=== PATIENT | male | born 1945 | race Caucasian/White ===

== ENCOUNTER → 2017-10-21 | Outpatient (CLI) | payer OTHER, MEDICARE | END | disposition home or self-care (01) | LOC: C.LABPBG 11:22 | PROVIDERS: ATTEND Family Medicine | DX: N40.1 Benign prostatic hyperplasia with lower urinary tract symptoms (principal) ==

== ENCOUNTER 2025-05-30 15:04 | Observation (INO) ==
--- NOTE | 2025-05-30 15:23 | Emergency Department Note ---
Impression & Plan Stroke-like symptoms, Bradycardia ED Provider Note NAME: ROSHAN GUY AGE: 79 SEX: M : 1945 ARRIVES VIA: Ambulance INFORMANT: Patient, ED PROVIDER(S): Andi Schmidt MD CHIEF COMPLAINT: Right arm numbness MEDICAL DECISION MAKING: Patient presents with the above. IV was established and blood work was obtained. Symptoms have resolved. Patient with a normal white count hemoglobin of 2.5 with a normal platelet count. Kidney function is unremarkable with normal electrolytes. CT head and CT angiography of the head and neck are negative. ABCD2 score of 4 given age and blood pressure and duration of symptoms. Moderate risk. Given this degree the patient would benefit from admission. I did speak the on-call hospitalist service Lisa Mays PA-C and Dr. Wright. Subsequently did speak with Dr. Godfrey who agreed with Plavix 75 but did not require Plavix load. Patient already on baby aspirin. Discussion w/ other healthcare providers: Lisa Mays PA-C and Dr. Wright inpatient medicine service Dr. Godfrey neurology Prior /Outside records reviewed: I reviewed part of a visit note from earlier today with Terrie Danielle with cardiology. The patient was seen at that time was noted to have a feeling of fogginess and right arm tingling started about an hour prior to arrival while he was driving. Differential diagnosis: Infection, dehydration, metabolic abnormality, hypo/hyperglycemia, electrolyte imbalance, anemia, UTI, pneumonia, thyroid dysfunction among others were considered. Diagnostics, as interpreted by me: ECG: Sinus bradycardia with sinus arrhythmia first-degree AV block, prolonged PA normal QRS, PVCs noted, normal axis no obvious ST elevations. Cardiac monitoring: An order was placed for continuous cardiac monitoring. The monitor shows a rate of 62 with sinus rhythm. Patient was placed on pulse oximetry Medical decision rules: ABCD2 score Imaging studies: I informally interpreted the patient's CT head does not show obvious ICH, cerebral atrophy noted, with formal report to follow. HPI: Patient presents due to concern for strokelike symptoms. Reportedly felt "off" and had some numbness in his right arm. Patient states that this lasted approximately an hour to an hour and 15 minutes in duration began around 1230 [id number]. Patient states that about a week ago he was seen at [facility] for feeling "off" and his checked his pulse and was noted to be in the 40s they present at that time. He had an unremarkable workup but was noted to have PVCs and thought that the bradycardia detected at home was likely because it was not picking up on the PVCs. Patient states that he was placed on a Holter monitor and was dropping his off at the cardiology office at which point he was seen and was noted to have the arm numbness. He denies any prior history of stroke or mini stroke. His symptoms have resolved. He denies any slurred speech or facial droop. No weakness of extremity. He denies any chest pains or shortness of breath. PAST MEDICAL HISTORY: See Below PAST SURGICAL HISTORY: See Below SOCIAL HISTORY: See Below HOME MEDICATIONS: See Below ALLERGIES: See Below VITALS: See Below PHYSICAL EXAMINATION: GENERAL: NAD, non-toxic. EYE EXAM: Normal conjunctiva. PERRL, no anisocoria and EOM's grossly intact w/o pain. OROPHARYNX: Moist mucus membranes, grossly normal dentition. NECK: Trachea midline, no stridor. LUNGS: Clear to auscultation. Normal chest wall mechanics. HEART: NSR, no MRG. ABDOMEN: Abdomen soft, non-tender, no masses, no rebound or guarding. BACK: No CVA TTP. SKIN: No rashes and no bruising. UPPER EXTREMITIES: Upper extremities are grossly normal. LOWER EXTREMITIES: Grossly normal, no edema. NEURO EXAM: Awake and alert, follows commands, no obvious facial asymmetry, normal speech, moves all 4 extremities. 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 Dizziness has been corrected. 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 Dizziness has been corrected. Hx of arthroscopy of right knee Hx of shoulder surgery left - to remove larry - not orthopedic issue Hx of vasectomy Hx of appendectomy Hx of cholecystectomy Hx of bilateral cataract extraction History of cardiac cath done in [place] - 2008? date (NO STENTS) Family History Brother Diabetes Cardiac disorder Mother Diabetes Cardiac disorder Hypertension Grandmother Breast cancer Other No family history of adverse response to anesthesia Social History Smoking Status: Former smoker Second Hand Exposure: Yes ( A CHILD); Do You Dip or Chew Tobacco: No; Hx Alcohol Use: Yes Alcohol type: beer, wine and hard liquor Hx Substance Use: No Preferred Language: Peruvian Communication Ability: Effective Daycare Assistant Required: No Beliefs That Will Affect Care: None Current Living Situation: Spouse Feels Safe at Home: Yes Assistive Devices: CPAP, Glasses and Hearing Aid - Bilateral Allergies Allergies Allergy/AdvReac Type Severity Reaction Status Date / Time sesame oil Allergy Severe Swelling Verified 05/30/25 17:04 of Lip/Tongue/Throat--ANYTHING "SESAME" codeine Allergy Mild Rash Verified 05/30/25 17:04 Penicillins Allergy Mild Rash Verified 05/30/25 17:04 Home Meds Home Medications Medication Instructions Recorded Confirmed aspirin 81 mg tablet,delayed 81 mg PO QAM 09/07/18 05/30/25 release bupropion HCl 100 mg tablet 100 mg PO HS 09/07/18 05/30/25 famotidine 40 mg tablet 40 mg PO HS 09/07/18 05/30/25 lactobacillus combination no.4 3 3,000 mmu cells PO HS 09/07/18 05/30/25 billion cell capsule (Probiotic) multivitamin 1 tab PO HS 09/07/18 05/30/25 escitalopram oxalate 20 mg tablet 20 mg PO QAM 10/20/20 05/30/25 fluticasone propionate 50 1 spray intranasal BID PRN 10/20/20 05/30/25 mcg/actuation nasal Congestion spray,suspension ezetimibe 10 mg tablet (Zetia) 10 mg PO QAM 02/14/25 05/30/25 metoprolol succinate 25 mg 12.5 mg PO QAM 02/14/25 05/30/25 tablet,extended release 24 hr Copper Suppliment 21 mg PO QAM 05/30/25 05/30/25 cholestyramine 4 gram oral powder 4 g PO DIRECTED PRN WHEN NEEDED. 05/30/25 05/30/25 (Cholestyramine Light) docusate sodium 100 mg capsule 100 mg PO QAM 05/30/25 05/30/25 (Stool Softener) oxybutynin chloride 10 mg 10 mg PO QAM 05/30/25 05/30/25 tablet,extended release 24 hr polyethylene glycol 3350 17 17 g PO DAILY PRN Constipation 05/30/25 05/30/25 gram/dose oral powder (Miralax) Results & Data (ED) Vital Signs Vital Signs - 24 hr 05/30/25 15:25 05/30/25 15:25 05/30/25 15:41 Temperature 36.7 C Temperature Source Oral Pulse Rate 61 59 L Pulse Rate [Apical] Pulse Rhythm Regular Pulse Strength Normal Respiratory Rate 18 Respiratory Effort / Characteristics Non-Labored Spontaneous Respiratory Depth Normal Respiratory Pattern Regular Blood Pressure 161/69 H Blood Pressure [Left Arm] Blood Pressure Mean 99 Blood Pressure Mean [Left Arm] Blood Pressure Position Semi-fowlers Pulse Oximetry 95 93 Oxygen Delivery Method Room Air Room Air Sepsis Recent Fever Within 48 Hours No Sepsis New/Unexplained Change in Mental Status No Sepsis Action Taken by Nursing No Action Required 05/30/25 16:55 05/30/25 17:22 05/30/25 17:22 Temperature Temperature Source Pulse Rate 56 L Pulse Rate [Apical] 54 L 56 L Pulse Rhythm Pulse Strength Respiratory Rate 16 16 16 Respiratory Effort / Characteristics Respiratory Depth Respiratory Pattern Blood Pressure Blood Pressure [Left Arm] 131/83 144/73 H Blood Pressure Mean Blood Pressure Mean [Left Arm] 99 96 Blood Pressure Position Pulse Oximetry 97 98 96 Oxygen Delivery Method Room Air Room Air Room Air Sepsis Recent Fever Within 48 Hours Sepsis New/Unexplained Change in Mental Status Sepsis Action Taken by Nursing 05/30/25 17:48 Temperature Temperature Source Pulse Rate 56 L Pulse Rate [Apical] Pulse Rhythm Pulse Strength Respiratory Rate 16 Respiratory Effort / Characteristics Respiratory Depth Respiratory Pattern Blood Pressure 134/65 Blood Pressure [Left Arm] Blood Pressure Mean Blood Pressure Mean [Left Arm] Blood Pressure Position Pulse Oximetry 98 Oxygen Delivery Method Room Air Sepsis Recent Fever Within 48 Hours Sepsis New/Unexplained Change in Mental Status Sepsis Action Taken by Correction Medications Current Medication List: was personally reviewed by me Laboratory Data Attestation: I reviewed the patient's lab results. 05/30/25 15:41 05/30/25 15:41 Lab Results 05/30/25 05/30/25 Range/Units 15:41 15:45 WBC 5.69 (4.8-10.8) K/ul RBC 3.43 L (4.70-6.10) M/uL Hgb 12.5 L (14.0-18.0) g/dl POC Hgb 11.9 L (14.0-18.0) g/dl Hct 35.9 L (42.0-52.0) % POC Hct 35 L (42-52) % MCV 104.7 H (80.0-100.0) fL MCH 36.4 H (25.0-34.0) pg MCHC 34.8 (32.0-36.0) g/dL RDW Std Deviation 57.1 H (36.4-46.3) fL RDW Coeff of Maynor 15.1 H (11.5-14.5) % Plt Count 164 (130-400) K/uL MPV 10.3 (9.4-12.4) fL Immature Gran % (Auto) 1.1 % Neut % (Auto) 63.7 % Lymph % (Auto) 25.3 % [place] % (Auto) 7.7 % Eos % (Auto) 1.8 % Baso % (Auto) 0.4 % Neut # (Auto) 3.63 (1.40-6.50) K/uL Lymph # (Auto) 1.44 (1.20-3.40) K/uL [place] # (Auto) 0.44 (0.11-0.59) K/uL Eos # (Auto) 0.10 (0.00-0.50) K/uL Baso # (Auto) 0.02 (0.00-0.20) K/uL Immature Gran # (Auto) 0.06 (0.01-0.20) K/uL Absolute Nucleated RBC 0.02 (0.00-0.12) K/uL Nucleated RBC % (auto) 0.4 % PT 11.2 (9.0-12.0) Seconds INR 1.1 (0.9-1.1) APTT 32 H (21-31) Seconds PTT Ratio 1.2 POC Sodium 141 (135-144) mmol/L Sodium 139 (136-145) mmol/L POC Potassium 4.1 (3.3-5.0) mmol/L Potassium 4.0 (3.5-5.1) mmol/L POC Chloride 104 (101-112) mmol/L Chloride 106 (98-107) mmol/L Carbon Dioxide 26 (21-32) mmol/L POC Total CO2 25 (24-31) mmol/L Anion Gap 7 (3-11) POC Anion Gap 16.0 (16-25) mmol/L POC BUN 15 (7-18) mg/dl BUN 14 (6-23) mg/dl Creatinine 0.88 (0.6-1.4) mg/dl POC Creatinine 0.9 (0.6-1.3) mg/dl Est Cr Clr Drug Dosing 84.5 ml/min eGFR 88.01 BUN/Creatinine Ratio 15.9 (10-20) Glucose 91 (70-99(Fasting)) mg/dl POC Glucose (other) 88 (70-99) mg/dl Calcium 9.3 (8.6-10.3) mg/dl POC Ioniz Calcium Pamela 1.19 (1.12-1.32) mmol/l Magnesium 2.0 (1.7-2.4) mg/dl Total Bilirubin 0.9 (0.2-1.0) mg/dl AST 16 (13-39) U/L ALT 17 (7-52) U/L Alkaline Phosphatase 43 (34-104) U/L Troponin I High Sens 7.1 (0-20) pg/ml Total Protein 7.0 (6.0-8.3) gm/dl Albumin 4.2 (3.4-5.0) gm/dl Globulin 2.8 (2.5-4.0) gm/dl Albumin/Globulin Ratio 1.5 (0.9-2) Administered Medications Discontinued Medications Ioversol (Optiray 320 125ml) 115 ml IV ONCE ONE Stop: 05/30/25 16:29 Last Admin: 05/30/25 16: Dose: 115 ml Documented By: [facility] Imaging Data Radiologist's Impression: Head CT 05/30/25 15:35 Technique: Axial computed tomography images were obtained of the brain without intravenous contrast. Comparison is made to the MRI dated 08/06/2023 Findings: There is diffuse cerebral atrophy, within expected limits for the patient's age. Areas of decreased attenuation are seen within the periventricular white matter, likely representing chronic small vessel ischemic disease. There is unchanged prominence of the left prefrontal extra-axial space, likely due to the cerebral atrophy. Blood vessels are again seen traversing this area There is no definite sign of acute or old infarction. No definite intracranial hemorrhage is evident. No definite mass lesion is seen on this noncontrast examination. There is no midline shift or other form of herniation. No hydrocephalus is seen. No fracture is identified. The orbits and the visualized paranasal sinuses appear unremarkable. The mastoid air cells appear clear. Impression: 1. Cerebral atrophy and chronic small vessel ischemic disease 2. Otherwise unremarkable noncontrast CT of the brain Electronically signed by Roby Mejia 05-30-2025 4:44 PM Head CTA 05/30/25 15:35 Technique: Axial computed tomography images were obtained of the brain after the administration of intravenous contrast according to the CT angiogram protocol Findings: No definite stenosis or aneurysm is seen of the anterior, middle, or posterior cerebral artery circulations. The visualized vertebral arteries and the basilar artery appear unremarkable Impression: No definite stenosis or aneurysm of the intracranial arteries Electronically signed by Roby Mejia 05-30-2025 4:46 PM Neck CTA 05/30/25 15:35 CT angiogram of the neck Provided History: Arm tingling Comparison: None Technique: NECK CTA: During rapid bolus intravenous injection of nonionic contrast material, axial images were obtained using thin collimation multidetector helical technique from the base of the neck through the base of the skull. This CT angiogram data was reconstructed at thin intervals with mild overlap. 3D reconstructions were obtained. The axial source images, multiplanar reformations, 3D reconstructions in both maximum intensity projection display and volume rendered models were reviewed. Dose reduction techniques were achieved by using automatic exposure control and/or adjustment of mA and/or kV according to patient size and/or use of iterative reconstruction technique. Findings: Neck CTA demonstrates no stenosis of the major cervical arteries. Mild calcification of the carotid bulbs bilaterally without associated stenosis. The origins of the great vessels from the aortic arch are patent. The normal distal right internal carotid artery measures 5 mm. The normal distal left internal carotid artery measures 5 mm. No mass is noted within the visualized portions of the cervical soft tissues or lung apices. Impression: Neck CTA demonstrates no stenosis of the major cervical arteries. Electronically signed by Luke Loredo 05-30-2025 4:50 PM Discharge Plan Visit Data Chief Complaint: Stroke/CVA Symptoms ED Provider: Andi Schmidt Discharge Problem: Stroke-like symptoms, Bradycardia Patient Disposition: Admitted As Inpatient Condition: Good Discharge Instructions Interventions: ED Discharge Assessment Last Done: 05/30/25 17:48 Forms Stand Alone Forms: [facility] [place] [email or web address] Prescriptions Prescriptions: No Action metoprolol succinate 25 mg tablet extended release 24 hr 12.5 mg PO QAM ezetimibe [Zetia] 10 mg tablet 10 mg PO QAM fluticasone propionate 50 mcg/actuation Fowler,Suspension 1 spray INTRANASAL BID PRN (Reason: Congestion) escitalopram oxalate 20 mg Tablet 20 mg PO QAM multivitamin Tablet 1 tab PO HS famotidine 40 mg Tablet 40 mg PO HS aspirin 81 mg Tablet,Delayed Release (Dr/Ec) 81 mg PO QAM bupropion HCl 100 mg Tablet 100 mg PO HS Probiotic 3 billion cell Capsule 3,000 mmu cells PO HS docusate sodium [Stool Softener] 100 mg Capsule 100 mg PO QAM polyethylene glycol 3350 [Miralax] 17 gram/dose Powder 17 g PO DAILY PRN (Reason: Constipation) Cholestyramine Light 4 gram Powder 4 g PO DIRECTED PRN (Reason: WHEN NEEDED.) Rx Instructions: administer w/meal; avoid other meds within 1hr before or 4-6hr after dose Copper Suppliment 21 mg PO QAM oxybutynin chloride 10 mg tablet extended release 24hr 10 mg PO QAM Referrals Referrals: Maria De Jesus Parnell MD [Primary Care Provider] -
[2025-05-30 15:54] LABS: Hematocrit (blood only) 35.9 % (42.0-52.0); Hemoglobin 12.5 g/dl (14.0-18.0); Immature Granulocytes # (auto) 0.06 K/uL (0.01-0.20); Immature Granulocytes % (auto) 1.1 %; Mean Corpuscular Hemoglobin 36.4 pg (25.0-34.0); Mean Corpuscular Volume 104.7 fL (80.0-100.0); Platelet Count 164 K/uL (130-400); RDW Standard Deviation 57.1 fL (36.4-46.3); Red Blood Count 3.43 M/uL (4.70-6.10); White Blood Count 5.69 K/ul (4.8-10.8)
[2025-05-30 16:12] LABS: Alanine Aminotransferase 17.0 U/L (7-52); Albumin Globulin Ratio 1.5 (0.9-2); Albumin Level 4.2 gm/dl (3.4-5.0); Alkaline Phosphatase 43.0 U/L (34-104); Anion Gap 7.0 (3-11); Bilirubin,Total 0.9 mg/dl (0.2-1.0); Blood Urea Nitrogen 14.0 mg/dl (6-23); Calcium 9.3 mg/dl (8.6-10.3); Carbon Dioxide 26.0 mmol/L (21-32); Chloride 106.0 mmol/L (98-107); Creatinine Clr Calc Pharmacy 84.5 ml/min; Globulin 2.8 gm/dl (2.5-4.0); Glucose 91.0 mg/dl (70-99(Fasting)); Magnesium 2.0 mg/dl (1.7-2.4); Potassium 4.0 mmol/L (3.5-5.1); Sodium 139.0 mmol/L (136-145); Total Protein 7.0 gm/dl (6.0-8.3)
[2025-05-30 16:22] LABS: INR 1.1 (0.9-1.1); Partial Thromboplastin Time 32 Seconds (21-31); Prothrombin Time 11.2 Seconds (9.0-12.0)
[2025-05-30] MEDS: OPTIRAY 320 125ml IV ONE (16:29)
--- NOTE | 2025-05-30 16:44 | CT Scan Report ---
Technique: Axial computed tomography images were obtained of the brain without intravenous contrast. Comparison is made to the MRI dated 08/06/2023 Findings: There is diffuse cerebral atrophy, within expected limits for the patient's age. Areas of decreased attenuation are seen within the periventricular white matter, likely representing chronic small vessel ischemic disease. There is unchanged prominence of the left prefrontal extra-axial space, likely due to the cerebral atrophy. Blood vessels are again seen traversing this area There is no definite sign of acute or old infarction. No definite intracranial hemorrhage is evident. No definite mass lesion is seen on this noncontrast examination. There is no midline shift or other form of herniation. No hydrocephalus is seen. No fracture is identified. The orbits and the visualized paranasal sinuses appear unremarkable. The mastoid air cells appear clear. Impression: 1. Cerebral atrophy and chronic small vessel ischemic disease 2. Otherwise unremarkable noncontrast CT of the brain Electronically signed by Roby Mejia 05-30-2025 4:44 PM
--- NOTE | 2025-05-30 16:47 | CT Scan Report ---
Technique: Axial computed tomography images were obtained of the brain after the administration of intravenous contrast according to the CT angiogram protocol Findings: No definite stenosis or aneurysm is seen of the anterior, middle, or posterior cerebral artery circulations. The visualized vertebral arteries and the basilar artery appear unremarkable Impression: No definite stenosis or aneurysm of the intracranial arteries Electronically signed by Roby Mejia 05-30-2025 4:46 PM
--- NOTE | 2025-05-30 16:51 | CT Scan Report ---
CT angiogram of the neck Provided History: Arm tingling Comparison: None Technique: NECK CTA: During rapid bolus intravenous injection of nonionic contrast material, axial images were obtained using thin collimation multidetector helical technique from the base of the neck through the base of the skull. This CT angiogram data was reconstructed at thin intervals with mild overlap. 3D reconstructions were obtained. The axial source images, multiplanar reformations, 3D reconstructions in both maximum intensity projection display and volume rendered models were reviewed. Dose reduction techniques were achieved by using automatic exposure control and/or adjustment of mA and/or kV according to patient size and/or use of iterative reconstruction technique. Findings: Neck CTA demonstrates no stenosis of the major cervical arteries. Mild calcification of the carotid bulbs bilaterally without associated stenosis. The origins of the great vessels from the aortic arch are patent. The normal distal right internal carotid artery measures 5 mm. The normal distal left internal carotid artery measures 5 mm. No mass is noted within the visualized portions of the cervical soft tissues or lung apices. Impression: Neck CTA demonstrates no stenosis of the major cervical arteries. Electronically signed by Luke Loredo 05-30-2025 4:50 PM
[2025-05-30] MEDS ORDERED: MELATONIN 3 MG TAB PO PRN (17:17)
[2025-05-30] MEDS ORDERED: ONDANSETRON INJ 2 MG/ML 2 ML VIAL IV PRN (17:17)
[2025-05-30] MEDS ORDERED: ACETAMINOPHEN 325 MG TAB PO PRN (17:17)
[2025-05-30] MEDS ORDERED: POLYETHYLENE (MIRALAX) 17 GM PACK PO PRN (17:17)
--- NOTE | 2025-05-30 17:37 | History & Physical Report ---
Date of Service May 30, 2025 Assessment & Plan (1) Stroke-like symptoms: (2) Bradycardia: (3) PVC (premature ventricular contraction): (4) GERD (gastroesophageal reflux disease): Plan This is a 79 year old pleasant gentleman with past medical history of GERD, BPH who presented to the ED on 05/30/2025 for stroke like symptoms. While in the ED his CBC & BMP were stable. Troponin was negative. Head CT, Head/Neck CTA were all negative for acute changes. EKG was without ischemia. 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 Outside window of TNK on arrival. Head CT, Head/Neck CTA all negative for acute changes Defer brain MRI on admission secondary to complete resolution of symptoms + possible metal implants in head If symptoms recur, recommend repeating a head CT. Continue ASA 81mg daily --> add Plavix 75mg daily. Continue for 21 days & follow up w/ PCP outpatient for further recommendations after. Echo w/ bubble, HgbA1c, and Lipid panel all pending. --> continue Zeta, await lipid panel prior to initiating statin. Defer PT/OT eval's on admission secondary to absence of LE symptoms. ED will provide update of neurology recommendations when they are recieved, await recs. #Bradycardia/PVCs Recently at for abnormal chest discomfort & found to be bradycardic w/ PVCs. No past records available to review at time of admission. Follows w/ [facility] & recently had 48 hour event monitor. Will touch base with [facility] in AM to see if any additional procedures/tests need done while he remains inpatient. On Metoprolol succinate 12.5mg daily --> continue w/ hold parameters Monitor on telemetry. #GERD - Pepcid Constipation - stool softener + Miralax #BPH - Oxybutynin #Mental health - ASA, Lexapro #Copper Deficiency - Copper supplement, follows w/ heme outpatient. DVT prophylaxis: SCD's, encourage ambulation Code: full Case discuss w/ Dr. Wright at time of admission. History of Present Illness Primary Care Provider: Maria De Jesus Parnlel MD This is a 79 year old pleasant gentleman with past medical history of GERD, BPH who presented to the ED on 05/30/2025 for stroke like symptoms. Alphonso was seen & examined with his at bedside. Alphonso reports earlier today around noon he developed abrupt onset of right arm numbness. He states that the symptoms lasted for about 20 minutes. He also states he felt chest heaviness at that time. Since then, these symptoms have resolved. He denies any shortness of breath. Denies any additional numbness/tingling. Denies a facial droop or slurred speech. Denies a NIEVES or dizziness. He reports chronic constipation but has been moving his bowels better. He reports no N/V, abdominal pain, or changes in urinary symptoms. He follows w/ Dr. Cid in urology for BPH. He states he was recently at for abnormal symptoms and was found to be bradycardic w/ HR in the 40s & frequent PVCs. He follows w/ [facility]ology outpatient and is awaiting results of his 48 hour holter monitor. He states that he did have a procedure on his head many years ago & they did have to implant metal. He reports his last echo was in December although no records in our system. While in the ED his CBC & BMP were stable. Troponin was negative. Head CT, Head/Neck CTA were all negative for acute changes. EKG was without ischemia. Code discussion did take place with the patient & he does confirm that he is a full code. Allergies Allergy/AdvReac Type Severity Reaction Status Date / Time sesame oil Allergy Severe Swelling Verified 05/30/25 17:04 of Lip/Tongue/Throat--ANYTHING "SESAME" codeine Allergy Mild Rash Verified 05/30/25 17:04 Penicillins Allergy Mild Rash Verified 05/30/25 17:04 Home Medications Medication Instructions Recorded Confirmed Type aspirin 81 mg tablet,delayed 81 mg PO QAM 09/07/18 05/30/25 History release bupropion HCl 100 mg tablet 100 mg PO HS 09/07/18 05/30/25 History famotidine 40 mg tablet 40 mg PO HS 09/07/18 05/30/25 History lactobacillus combination no.4 3 3,000 mmu cells PO HS 09/07/18 05/30/25 History billion cell capsule (Probiotic) multivitamin 1 tab PO HS 09/07/18 05/30/25 History escitalopram oxalate 20 mg tablet 20 mg PO QAM 10/20/20 05/30/25 History fluticasone propionate 50 1 spray intranasal BID PRN 10/20/20 05/30/25 History mcg/actuation nasal Congestion spray,suspension ezetimibe 10 mg tablet (Zetia) 10 mg PO QAM 02/14/25 05/30/25 History metoprolol succinate 25 mg 12.5 mg PO QAM 02/14/25 05/30/25 History tablet,extended release 24 hr Copper Suppliment 21 mg PO QAM 05/30/25 05/30/25 History cholestyramine 4 gram oral powder 4 g PO DIRECTED PRN WHEN NEEDED. 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 2017 - Post op loss of hearing in right ear. Dizziness has been corrected. 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 2017 - Post op loss of hearing in right ear. Dizziness has been corrected. Hx of arthroscopy of right knee Hx of shoulder surgery left - to remove larry - not orthopedic issue Hx of vasectomy Hx of appendectomy Hx of cholecystectomy Hx of bilateral cataract extraction History of cardiac cath done in - 2008? date (NO STENTS) Family History Brother Diabetes Cardiac disorder Mother Diabetes Cardiac disorder Hypertension Grandmother Breast cancer Other No family history of adverse response to anesthesia Social History Smoking Status: Former smoker Cigarettes Per Day: last cigarette 50 years ago; Second Hand Exposure: Yes ( A CHILD); Do You Dip or Chew Tobacco: No; Hx Alcohol Use: Yes Alcohol type: beer, wine and hard liquor Hx Substance Use: No Preferred Language: [place] Communication Ability: Effective Socket Puller Required: No Beliefs That Will Affect Care: None Current Living Situation: Spouse Current Living Situation Comment: lives at home with Other Information That Helps Us Care for You: No Feels Safe at Home: Yes Safety Concerns: Feels Safe At This Time Assistive Devices: Glasses and Hearing Aid - Bilateral Physical Exam Physical Exam: General: NAD, VS: BP 144/73; P56; R16; T36.7C Resp: normal respiratory effort, lungs clear to auscultation CV: bradycardic @ 58, + murmur, Abd: normal bowel sounds, non tender Extremities: Moves all extremities, no edema Neuro: A&O x3, strength 5/5 in all extremities. no facial droop. speech intact. sensation in tact in all extremities. Skin: intact, no lesions noted Results & Data Results & Data Vital Signs (Past 12 Hours) Vital Signs Temp Pulse Pulse Resp BP BP Pulse Ox 05/30/25 17:22 56 L 16 96 05/30/25 17:22 56 L 16 144/73 H 98 05/30/25 16:55 54 L 16 131/83 97 05/30/25 15:41 59 L 05/30/25 15:25 93 05/30/25 15:25 36.7 C 61 18 161/69 H 95 O2 Del Method 05/30/25 17:22 Room Air 05/30/25 17:22 Room Air 05/30/25 16:55 Room Air 05/30/25 15:41 05/30/25 15:25 Room Air 05/30/25 15:25 Room Air Supervising Physician Co-Signing Physician Notes The patient was seen by me. The chart was reviewed. Case discussed with JERRY Henderson. Agree with assessment and plan PG Care Time/CCT Total # of Minutes Spent Total Time Spent with Patient: Total time spent is greater than 50% in coordination of care (as documented) at patient's floor/unit and/or counseling patient: Coding Level of Care Code 98775 INT INP/OBS CARE 3/75MIN Diagnoses Stroke-like symptoms R29.90 Bradycardia R00.1 PVC (premature ventricular contraction) I49.3 GERD (gastroesophageal reflux disease) K21.9
[2025-05-30] MEDS ORDERED: CHOLESTYRAMINE LIGHT 4 GM PKT PO PRN (18:52)
[2025-05-30] MEDS ORDERED: Nursing to Pharmacy Communication SCH (19:00)
[2025-05-30] MEDS: CLOPIDOGREL BISULFATE 75 MG TAB PO ONE (19:07)
[2025-05-30] MEDS: ADVANCED PROBIOTIC 625 MG CAPSULE PO SCH (20:27)
[2025-05-30] MEDS: MULTIVITAMIN TAB PO SCH (20:27)
[2025-05-30] MEDS: FAMOTIDINE 20 MG TAB PO SCH (20:27)
[2025-05-30] MEDS: METOPROLOL SUCC 25MG EXT REL TAB PO SCH (20:28)
[2025-05-31 06:02] LABS: Hematocrit (blood only) 33.4 % (42.0-52.0); Hemoglobin 11.4 g/dl (14.0-18.0); Mean Corpuscular Hemoglobin 35.6 pg (25.0-34.0); Mean Corpuscular Volume 104.4 fL (80.0-100.0); Platelet Count 141 K/uL (130-400); RDW Standard Deviation 56.3 fL (36.4-46.3); Red Blood Count 3.20 M/uL (4.70-6.10); White Blood Count 4.22 K/ul (4.8-10.8)
[2025-05-31 06:20] LABS: Anion Gap 8.0 (3-11); Blood Urea Nitrogen 13.0 mg/dl (6-23); Calcium 9.2 mg/dl (8.6-10.3); Carbon Dioxide 27.0 mmol/L (21-32); Chloride 105.0 mmol/L (98-107); Cholesterol 156.0 mg/dl (0-200); Creatinine Clr Calc Pharmacy 82.8 ml/min; Glucose 93.0 mg/dl (70-99(Fasting)); HDL Cholesterol 34.0 mg/dl; Potassium 4.1 mmol/L (3.5-5.1); Sodium 140.0 mmol/L (136-145); Triglycerides 149.0 mg/dl (0-150)
[2025-05-31] MEDS: CLOPIDOGREL BISULFATE 75 MG TAB PO SCH (07:38)
[2025-05-31 07:42] VITALS: BP 156/67; PULSE 50; RESP 18; TEMP 98.1; O2SAT 96
[2025-05-31] MEDS: EZETIMIBE 10 MG TAB PO SCH (08:39)
[2025-05-31] MEDS: ASPIRIN 81 MG ECTAB PO SCH (08:39)
[2025-05-31] MEDS: DOCUSATE SODIUM 100 MG CAP PO SCH (08:39)
[2025-05-31] MEDS: ESCITALOPRAM OXALATE 20 MG TAB PO SCH (08:40)
[2025-05-31] MEDS: OXYBUTYNIN CHLORIDE XL 5 MG TABCR PO SCH (08:40)
[2025-05-31] MEDS: ATORVASTATIN 20 MG TAB PO SCH (08:40)
[2025-05-31] MEDS ORDERED: METOPROLOL SUCC 25MG EXT REL TAB PO SCH (09:00)
[2025-05-31 09:02] LABS: Hemoglobin A1C 4.4 % (4.5-5.6)
--- NOTE | 2025-05-31 09:22 | Discharge Summary ---
Discharge Summary Date of Service May 31, 2025 Principal Dx & Hospital Course #1 = Principal Diagnosis (1) Stroke-like symptoms: (2) Bradycardia: (3) PVC (premature ventricular contraction): (4) GERD (gastroesophageal reflux disease): Plan This is a 79 year old pleasant gentleman with past medical history of GERD, BPH who presented to the ED on 05/30/2025 for stroke like symptoms. While in the ED his CBC & BMP were stable. Troponin was negative. Head CT, Head/Neck CTA were all negative for acute changes. EKG was without ischemia. 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 Outside window of TNK on arrival. Head CT, Head/Neck CTA all negative for acute changes Defer brain MRI on admission secondary to complete resolution of symptoms + possible metal implants in head Continue ASA 81mg daily --> add Plavix 75mg daily as recommended by neurology. Continue for 21 days & follow up w/ PCP outpatient for further recommendations after. Echo w/ bubble final read pending A1c 4.4% Lipid panel: TG 149; Cholesterol 156; LDL 92; HDL 30 Add atorvastatin 20mg once daily in addition to daily Zetia #Bradycardia/PVCs Recently at for abnormal chest discomfort & found to be bradycardic w/ PVCs. No past records available to review at time of admission. Follows w/ [facility] & recently had 48 hour event monitor. --> Discussed w/ PRODUCTION MACHINE COMPUTER OPERATOR, patient to report to their office after discharge to get another event monitor on. On Metoprolol succinate 12.5mg daily --> continue w/ hold parameters #GERD - Pepcid Constipation - stool softener + Miralax #BPH - Oxybutynin #Mental health - ASA, Lexapro #Copper Deficiency - Copper supplement, follows w/ heme outpatient. Patient discharged home 05/31. Admission HPI Per Admitting Provider This is a 79 year old pleasant gentleman with past medical history of GERD, BPH who presented to the ED on 05/30/2025 for stroke like symptoms. Alphonso was seen & examined with his at bedside. Alphonso reports earlier today around noon he developed abrupt onset of right arm numbness. He states that the symptoms lasted for about 20 minutes. He also states he felt chest heaviness at that time. Since then, these symptoms have resolved. He denies any shortness of breath. Denies any additional numbness/tingling. Denies a facial droop or slurred speech. Denies a NIEVES or dizziness. He reports chronic constipation but has been moving his bowels better. He reports no N/V, abdominal pain, or changes in urinary symptoms. He follows w/ Dr. Cid in urology for BPH. He states he was recently at for abnormal symptoms and was found to be bradycardic w/ HR in the 40s & frequent PVCs. He follows w/ [facility]ology outpatient and is awaiting results of his 48 hour holter monitor. He states that he did have a procedure on his head many years ago & they did have to implant metal. He reports his last echo was in December although no records in our system. While in the ED his CBC & BMP were stable. Troponin was negative. Head CT, Head/Neck CTA were all negative for acute changes. EKG was without ischemia. Code discussion did take place with the patient & he does confirm that he is a full code. Discharge Exam General: NAD, VS: BP 156/67; P50; R18; T36.7C Resp: normal respiratory effort Extremities: Moves all extremities, no edema Neuro: A&O x3 Skin: intact, no lesions noted Discharge Plan Discharge Items Patient Disposition: Home - Self-Care Reason For Visit: RIGHT ARM NUMBNESS Discharge Diagnosis: TIA Condition on Discharge: Good Activity: Resume your previous activity Non-emergency contact: Primary Care Provider and Glass Smoother Call non-emergency contact if: you have any medication questions and your symptoms worsen Follow-up/Referrals: Terrie Danielle CRNP [Nurse Practitioner] - (Dr. Romano July 20, 2025 at 1115. ) Peri Prado MD [Resident] - 06/07/25 12:45 pm Diet: Heart Healthy Addtl Attending Provider Instructions: Mr. Reynolds, You were recently hospitalized secondary to stroke like symptoms. Thankfully, your symptoms resolved and there were no signs of ischemia found on your brain imaging. This is consistent with a TIA. Medications: Your medication list has been reviewed and reconciled upon discharge to ensure accuracy and continuity of care. An updated list of all your medications is included with your hospital discharge paperwork. Please review this list closely, and make note of any changes. Medications sent on discharge: Plavix 75mg once daily - Please take this for 21 days. Following this time period, please discuss further with your PCP. Atorvastatin 20mg once daily - This medication is for your cholesterol. This will be taken along with your Zetia. For your metoprolol - please monitor your pulse at home through a pulse oximetry prior to taking. If your heart rate is less than 60bpm then the dose of metoprolol should be held. Take your medications as instructed; do not skip a dose of your medicines. Make sure all of your doctors know every medicine you are taking (including nbiy-dig-rvifcai medicines, vitamins, and supplements). Call your primary care provider before taking any new medicines (including over- the-counter medicines, vitamins, and supplements), because some of these may interact with your current medications, or may make your symptoms worse. Tell your primary care provider if you cannot afford your medications. Activity: You can do normal everyday activities as your body allows. Take rest breaks if you feel tired. Do not overexert. Stop activity if you have pain, shortness of breath or feel dizzy. Follow-up appointments: Make an appointment with your primary care physician within one week of discharge. A copy of this summary will be sent to them. Every time you see your primary care physician, or any other doctor, bring your medication list, and a list of questions. After discharge today, please report to your web site project manager's office to get an event monitor placed to continue to monitor your heart rate. CONTACT YOUR PRIMARY CARE PROVIDER if you experience any of the following: Shortness of breath or difficulty breathing Fevers or chills Feeling tired with normal activity or experiencing dizziness or fainting Difficulty following your treatment plan, or difficulty taking medications CALL 911 OR GO TO THE EMERGENCY DEPARTMENT if you experience any of the following: Severe abdominal pain or nausea/vomiting Severe chest pain, or chest pain that radiates (moves) to your jaw or arm Sudden, severe shortness of breath or difficulty breathing Thank you for allowing us to participate in your care. Pending Studies at Discharge: No Stand-Alone Forms: My [facility] [place], Smoking Cessation Medications and DC Order Prescriptions: New atorvastatin 20 mg Tablet 20 mg PO QAM Qty: 30 0RF clopidogrel 75 mg Tablet 75 mg PO QAM 30 Days Qty: 21 0RF Continued metoprolol succinate 25 mg tablet extended release 24 hr 12.5 mg PO QAM ezetimibe [Zetia] 10 mg tablet 10 mg PO QAM fluticasone propionate 50 mcg/actuation [place],Suspension 1 spray INTRANASAL BID PRN (Reason: Congestion) escitalopram oxalate 20 mg Tablet 20 mg PO QAM multivitamin Tablet 1 tab PO HS famotidine 40 mg Tablet 40 mg PO HS aspirin 81 mg Tablet,Delayed Release (Dr/Ec) 81 mg PO QAM bupropion HCl 100 mg Tablet 100 mg PO HS Probiotic 3 billion cell Capsule 3,000 mmu cells PO HS docusate sodium [Stool Softener] 100 mg Capsule 100 mg PO QAM polyethylene glycol 3350 [Miralax] 17 gram/dose Powder 17 g PO DAILY PRN (Reason: Constipation) Cholestyramine Light 4 gram Powder 4 g PO DIRECTED PRN (Reason: WHEN NEEDED.) Rx Instructions: administer w/meal; avoid other meds within 1hr before or 4-6hr after dose Copper Suppliment 21 mg PO QAM oxybutynin chloride 10 mg tablet extended release 24hr 10 mg PO QAM Discharge Orders: Discharge Order (Routine); Ordered 05/31/25 Ordered By: Lisa Chauhan Admission Data Admit Date/Time: 05/30/25 17:17 Attending Provider: Óscar Wright Admit Provider: Óscar Wright Primary Care Provider: Maria De Jesus Parnell Other Providers: Óscar Wright Other Interventions: Discharge Summary Assessment (RN) Last Done: 05/31/25 09:23 Hospital Stay Data Consultations 05/30/25 16:56 ED Decision to Admit Stat Diagnostic Imagining Performed 05/30/25 15:35 CT angio head w con Stat CT angio neck with con Stat CT head/brain wo con Stat Pending Results Patient Have Any Pending Studies at Discharge: No Discharge Instructions Given to Patient (Per Discharging Provider) Mr. Reynolds, Volodymyr were recently hospitalized secondary to stroke like symptoms. Thankfully, your symptoms resolved and there were no signs of ischemia found on your brain imaging. This is consistent with a TIA. Medications: Your medication list has been reviewed and reconciled upon discharge to ensure accuracy and continuity of care. An updated list of all your medications is included with your hospital discharge paperwork. Please review this list closely, and make note of any changes. Medications sent on discharge: Plavix 75mg once daily - Please take this for 21 days. Following this time period, please discuss further with your PCP. Atorvastatin 20mg once daily - This medication is for your cholesterol. This will be taken along with your Zetia. For your metoprolol - please monitor your pulse at home through a pulse oximetry prior to taking. If your heart rate is less than 60bpm then the dose of metoprolol should be held. Take your medications as instructed; do not skip a dose of your medicines. Make sure all of your doctors know every medicine you are taking (including vsct-hqu-kkwtddg medicines, vitamins, and supplements). Call your primary care provider before taking any new medicines (including over- the-counter medicines, vitamins, and supplements), because some of these may interact with your current medications, or may make your symptoms worse. Tell your primary care provider if you cannot afford your medications. Activity: You can do normal everyday activities as your body allows. Take rest breaks if you feel tired. Do not overexert. Stop activity if you have pain, shortness of breath or feel dizzy. Follow-up appointments: Make an appointment with your primary care physician within one week of discharge. A copy of this summary will be sent to them. Every time you see your primary care physician, or any other doctor, bring your medication list, and a list of questions. After discharge today, please report to your web site project manager's office to get an event monitor placed to continue to monitor your heart rate. CONTACT YOUR PRIMARY CARE PROVIDER if you experience any of the following: Shortness of breath or difficulty breathing Fevers or chills Feeling tired with normal activity or experiencing dizziness or fainting Difficulty following your treatment plan, or difficulty taking medications CALL 911 OR GO TO THE EMERGENCY DEPARTMENT if you experience any of the following: Severe abdominal pain or nausea/vomiting Severe chest pain, or chest pain that radiates (moves) to your jaw or arm Sudden, severe shortness of breath or difficulty breathing Thank you for allowing us to participate in your care. Supervising Physician Co-Signing Physician Notes The patient was not seen by me. The chart was reviewed. Case discussed with JERRY Henderson. Agree with assessment and plan Total Time Total Time Spent Total Time Spent (In Minutes): 60 Total Time Includes: Examination of the Patient, Discharge Planning, Medication Reconciliation and Communication With Other Providers Coding Level of Care Code 72735 INP/OBS DISCH >30 MIN Diagnoses Stroke-like symptoms R29.90 Bradycardia R00.1 PVC (premature ventricular contraction) I49.3 GERD (gastroesophageal reflux disease) K21.9
== END 2025-05-31 10:51 | disposition home or self-care (01) ==
LOC: SUATTDRO → 4W 15:04 → ED 15:04 → 4W 17:48